=== PATIENT | male | born 1940 ===

== ENCOUNTER 2021-11-09 15:00 | Observation (INO) | payer OTHER, MEDICARE ==
[~2021-11-09] VITALS: Ht 182.9 cm; Wt 90.4 kg
[2021-11-09] MEDS ORDERED: OMEP20ER PO (15:37)
[2021-11-09] MEDS ORDERED: LORA10ER PO (16:20)
[2021-11-09] MEDS ORDERED: KEPPRA250 M2 PO ×2 (16:21)
[2021-11-09 20:52] LABS: Source, Urine Clean Catch
[2021-11-09 20:57] LABS: BASOPHILS ABSOLUTE AUTO 0.05 K/mm3 (0.00-0.23); BASOPHILS PERCENT AUTO 1 % (0-2); EOSINOPHILS ABSOLUTE AUTO 0.06 K/mm3 (0.00-0.68); EOSINOPHILS PERCENT AUTO 1 % (0-6); Hematocrit 36.8 % (37.0-53.0); Hemoglobin 12.9 g/dL (13.5-17.5); IMMATURE GRAN ABSOLUTE AUTO 0.03 K/mm3 (0.00-0.10); IMMATURE GRAN PERCENT AUTO 0 % (0-1); LYMPHOCYTES ABSOLUTE AUTO 1.45 K/mm3 (0.84-5.20); LYMPHOCYTES PERCENT AUTO 16 % (21-46); MONOCYTES ABSOLUTE AUTO 0.78 K/mm3 (0.16-1.47); MONOCYTES PERCENT AUTO 9 % (4-13); Mean Corpuscular HGB 34.2 pg (26.0-34.0); Mean Corpuscular HGB Conc 35.1 g/dL (31.5-36.5); Mean Corpuscular Volume 98 fL (80-100); Mean Platelet Volume 9.4 fL (9.1-12.4); NEUTROPHILS ABSOLUTE AUTO 6.82 K/mm3 (1.96-9.15); NEUTROPHILS PERCENT AUTO 74 % (41-73); Platelet Count 128 K/mm3 (150-400); RDW Coefficient Variation 12.9 % (11.7-14.2); Red Blood Cell Count 3.77 M/mm3 (4.30-5.90); White Blood Cell Count 9.19 K/mm3 (4.00-11.30)
[2021-11-09 20:59] LABS: Appearance, Urine Clear (Clear); Bilirubin, Urine Neg (Neg); Blood, Urine Neg (Neg); Color, Urine Yellow (P-Yellow); Glucose Qualitative, Urine Neg (Neg); Ketones, Urine 2+ (Neg); Leukocyte Esterase, Urine Neg (Neg); Nitrite, Urine Neg (Neg); Protein, Urine Neg (Neg); Specific Gravity, Urine 1.005 (1.003-1.022); Urobilinogen, Urine NORM (Normal)
[2021-11-09 21:10] LABS: International Normalized Ratio 1.16; Prothrombin Time Results 12.1 Sec (9.7-11.5)
[2021-11-09 21:22] LABS: Alanine Aminotransfer (ALT/SGP 25 U/L (12-78); Albumin, Blood 3.6 g/dL (3.4-5.0); Albumin/Globulin Ratio 1.2 (0.8-1.8); Alk Phos 81 U/L (50-136); Anion Gap 10 mmol/L (6-16); Aspartate Aminotrans (AST/SGOT 27 U/L (12-37); Bilirubin, Total 1.5 mg/dL (0.1-1.0); Blood Urea Nitrogen 16 mg/dL (8-24); Bun/Creatinine Ratio 14.2 (12.0-20.0); CO2, Blood 22 mmol/L (21-32); Calcium, Blood 9.1 mg/dL (8.5-10.1); Chloride, Blood 108 mmol/L (98-108); Creatinine, Blood 1.13 mg/dL (0.60-1.20); Ethanol (Alcohol), Blood, Med <3 mg/dL; Globulin, Blood 3.1 g/dL (2.2-4.0); Glomerular Filtration Rate >60 (60-); Glucose, Blood 111 mg/dL (70-99); Sodium, Blood 140 mmol/L (136-145); Total Protein, Blood 6.7 g/dL (6.4-8.2)
--- NOTE | 2021-11-10 04:55 | NUR ---
SHIFT SUMMARY PT ER ADMIT THIS SHIFT FOR RIGHT PUBIC FRACTURE AFTER FALLING 6FT INTO AN EMBANKMENT WHILE MOWING THE LAWN. PT ADMITTED TO THE ER A TRAUMA. PT HAS BEEN STABLE SINCE ADMISSION. VITALS STABLE, AND PAIN IS MINIMAL. SKIN IS INTACT. PT IS A/OX4, WITH NO DECREASES IN LOC. BEING ADMITTED BY DR. LOJA. PT HAS BEEN NPO. IVF INFUSING ORDERED. PT DENIES NEEDS T/O SHIFT. BED IN LOWEST POSITION, CALL LIGHT WITHIN REACH.
--- NOTE | 2021-11-10 17:42 | NUR ---
PT 1 PERSON STANDBY ASSIST WITH WALKER TO GET UP TO CHAIR. PT REPORTS PAIN FOLLOWING ACTIVITY IS 6/10. PT SUNNI REGULAR DIET WITHOUT NAUSEA. VOIDING CLEAR YELLOW URINE, PT IS HOPING TO DISCHARGE IN AM
--- NOTE | 2021-11-11 05:22 | NUR ---
SHIFT SUMMARY NO ACUTE CHANGES OVERNIGHT. AOX4. PT WAS UP IN HIS CHAIR AT THE BEGINNING OF SHIFT. AMBULATES WITH FWW AND SBA. VSS. PT DENIES CHEST PAIN, SOB AND DIZZINESS. WB TOLERATED ON BILATERAL LOW EXTREMITIES. PT REPORTS MILD-MOD PAIN. PAIN MANAGED WITH TYLENOL ONLY. PT REFUSE TO TAKE NORCO OVERNIGHT, STATING PAIN IS TOLERABLE AT THIS TIME. HE WILL WORK WITH THERAPY TODAY TO GET CLEAR WITH PHYSICAL THERAPY TODAY AND POSSIBLE DISCHARGE. TOLERATING PO INTAKE DENIES N/V. CALL LIGHT WITHIN REACH. WILL PROVIDE REPORT TO ONCOMING NURSE.
[2021-11-11] MEDS ORDERED: Norco 5-325 Ta1 EACH PO (08:04)
--- NOTE | 2021-11-11 13:00 | NUR ---
1250 YASH NOTIFIED BY CARE MANAGEMENT AND PT WILL BE ABLE TO [employer] SOFTWARE DEVELOPER WALKER POST DISCHARGE. PT ABLE TO FILL PAIN MED. PT UP IN ROOM WITH WALKER, STEADY ON FEET AND REPORTS PAIN IS ADEQUATELY CONTROLLED. PT SUNNI PO FOOD AND FLUIDS, VOIDING CLEAR YELLOW URINE. PT DISCHARGED TO HOME WITH HIS
== END 2021-11-11 12:49 | disposition home or self-care (01) ==
LOC: ER 15:00 → SURS 15:12 → ER 21:00 → SURS 23:05
PROVIDERS: Emergency Medicine; ADMIT Surgery
DX: S32.591A Other specified fracture of right pubis, initial encounter for closed fracture (principal); S36.81XA Injury of peritoneum, initial encounter; W19.XXXA Unspecified fall, initial encounter; R91.8 Other nonspecific abnormal finding of lung field; K21.9 Gastro-esophageal reflux disease without esophagitis; Z91.041 Radiographic dye allergy status; Z88.5 Allergy status to narcotic agent; Z79.899 Other long term (current) drug therapy
CPT/HCPCS: 70450; 71260; 72125; 72192; 73030; 73502; 73562-RT; 74177; 80053; 81003; 85025; 85610; 85730; 96374; 97116; 97162; 97530; A9270; G0378; G0480; J1650; J7030; Q9967